=== PATIENT | female | born 1970 | race Caucasian/White ===

== ENCOUNTER → 2016-11-18 | Outpatient (CLI) | payer OTHER ==
--- NOTE | 2016-11-18 10:05 | REPMRS ---
Patient History The patient states she had a clinical breast exam in 2016.No known family history of cancer. Saline implants in both breasts, 2007. Took hormonal contraceptives for 28 years beginning at age 16. Digital Mammo Screening Bilat: November 18, 2016 - Exam #: [id number] Bilateral CC and MLO view(s) were taken. Technologist: Linda Barney, Technologist Prior study comparison: May 13, 2015, bilateral digital mammo screening bilat performed at [facility]. March 11, 2014, bilateral bilat screen digital mammo, performed at [facility] ([facility]). February 24, 2011, bilateral screening mammogram, performed at [facility] ([facility]). FINDINGS: There are scattered fibroglandular densities. The visualized retropectoral saline implant margins are smooth. Breast parenchymal density pattern is essentially symmetric. No dominant mass, clustered microcalcification, or archetectural distortion is evident on either side. No significant changes when compared with prior studies. ASSESSMENT: BI-RADS/ACR category 2 mammogram. Benign finding(s). Recommendation Routine screening mammogram of both breasts in 1 year (for women over age 40). Electronically Signed By: Donato Fabian MD 11/18/16 [id number]
== END ==
LOC: M RAD 07:18
PROVIDERS: ATTEND Physician Assistant
DX: Z12.31 Encounter for screening mammogram for malignant neoplasm of breast (principal)

== ENCOUNTER → 2018-02-07 | Outpatient (CLI) | payer OTHER | LOC: M RAD 13:30 | DX: Z12.31 Encounter for screening mammogram for malignant neoplasm of breast (principal) | CPT/HCPCS: 77067 ==

== ENCOUNTER → 2019-03-13 | Outpatient (CLI) | payer BC, OTHER ==
--- NOTE | 2019-03-13 09:30 | REPMRS ---
Patient History The patient states she had a clinical breast exam in February 2019. No known family history of cancer. Saline implants in both breasts, 2007. Took hormonal contraceptives for 28 years beginning at age 16. Digital Mammo Screening Bilat: March 13, 2019 - Exam #: [id number] Bilateral CC and MLO view(s) were taken. Technologist: Fabiana Nugent, Technologist Prior study comparison: February 07, 2018, bilateral digital mammo screening bilat performed at [facility]. November 18, 2016, bilateral digital mammo screening bilat performed at [facility]. May 13, 2015, bilateral digital mammo screening bilat performed at [facility]. March 11, 2014, bilateral bilat screen digital mammo, performed at [facility] ([facility]). FINDINGS: There are scattered fibroglandular densities. Bilateral screening digital mammogram with tomosynthesis: The patient states that there are no palpable abnormalities or other breast complaints. The patient's Ty[place] Lifetime Breast Carcinoma Risk is: 7.9% There are bilateral breast implants. Images are performed with and without implant displacement. There is no interval development of dominant mass, areas of architectural distortion, or clustered microcalcification typical of malignancy. There are no additional findings on tomosynthesis. This mammogram is interpreted with the aid of an FDA approved computer-aided detection system. Not all cancers are identified by mammography. Negative mammogram reports should not delay biopsy if a dominant or clinically suspicious mass is present. Adenosis and dense breasts may obscure an underlying neoplasm. No significant changes when compared with prior studies. Assessment: BI-RADS/ACR category 1 mammogram. Negative Mammogram. Recommendation Routine screening mammogram in 1 year (for women over age 40). This mammogram was interpreted with the aid of an FDA-approved computer-aided dectection system. A. Negative x-ray reports should not delay biopsy if a dominant or clinically suspicious mass is present. B. Not all cancers are identified by mammography. C. Adenosis and dense breast may obscure an underlying neoplasm. Electronically Signed By: Antonio Patel M.D. 03/13/19 0929
== END ==
LOC: M RAD 07:46
PROVIDERS: ATTEND Nurse Practitioner Family
DX: Z12.31 Encounter for screening mammogram for malignant neoplasm of breast (principal)

== ENCOUNTER → 2019-08-17 | Outpatient (CLI) | payer BC, OTHER ==
[2019-08-17 10:18] LABS: HEMATOCRIT 43.5 % (36.0-47.0); HEMOGLOBIN 14.3 g/dl (12.0-15.5); MEAN CORPUSCULAR HEMOGLOBIN 31.2 pg (27.0-33.0); MEAN CORPUSCULAR HGB CONC 32.9 g/dl (32.0-36.5); MEAN CORPUSCULAR VOLUME 94.8 fl (80.0-96.0); PLATELET COUNT, AUTOMATED 197 10^3/uL (150-450); RED BLOOD COUNT 4.59 10^6/uL (4.00-5.40); WHITE BLOOD COUNT 8.6 10^3/uL (4.0-10.0)
[2019-08-17 10:26] LABS: ALBUMIN 3.7 GM/DL (3.2-5.2); ALT/SGPT 28 U/L (12-78); BILIRUBIN,TOTAL 0.3 MG/DL (0.2-1.0); BLOOD UREA NITROGEN 10 MG/DL (7-18); CALCIUM LEVEL 9.3 MG/DL (8.5-10.1); CARBON DIOXIDE LEVEL 31 MEQ/L (21-32); CHLORIDE LEVEL 106 MEQ/L (98-107); CREATININE FOR GFR 0.64 MG/DL (0.55-1.30); GLOMERULAR FILTRATION RATE > 60.0 (>58); GLUCOSE, FASTING 85 MG/DL (70-100); POTASSIUM SERUM 4.2 MEQ/L (3.5-5.1); SODIUM LEVEL 140 MEQ/L (136-145); TOTAL PROTEIN 7.2 GM/DL (6.4-8.2)
[2019-08-17 10:50] LABS: RUBELLA IgG QUALITATIVE IMMUNE (IMMUNE)
[2019-08-17 10:51] LABS: HEPATITIS B SURFACE ANTIGEN NEGATIVE (NEGATIVE)
[2019-08-17 11:19] LABS: HEPATITIS C VIRUS ABY INDEX 0.1 INDEX (<0.8)
== END ==
LOC: M LAB 09:25
PROVIDERS: ATTEND Obstetrics & Gynecology Reproductive Endocrinology
DX: E28.9 Ovarian dysfunction, unspecified (principal)

== ENCOUNTER → 2019-09-20 | Outpatient (CLI) | payer BC, OTHER ==
[2019-09-20 09:13] LABS: THYROID STIMULATING HORMONE 1.07 uIU/ML (0.358-3.740)
[2019-09-20 12:43] LABS: ESTRADIOL 53.8 PG/ML; PROGESTERONE 27.27 NG/ML
== END ==
LOC: M LAB 07:39
PROVIDERS: ATTEND Obstetrics & Gynecology Reproductive Endocrinology
DX: E28.9 Ovarian dysfunction, unspecified (principal)

== ENCOUNTER → 2019-09-24 | Outpatient (CLI) | payer BC, OTHER ==
[2019-09-24 08:41] LABS: HCG, SERUM QUANTITATIVE < 1.0 MIU/ML
== END ==
LOC: M LAB 07:47
PROVIDERS: ATTEND Obstetrics & Gynecology Reproductive Endocrinology
DX: Z32.00 Encounter for pregnancy test, result unknown (principal)

== ENCOUNTER → 2019-10-27 | Outpatient (CLI) | payer BC, OTHER ==
[2019-10-29 13:02] LABS: ESTRADIOL 258.2 PG/ML; PROGESTERONE 38.67 NG/ML
== END ==
LOC: M LAB 09:08
PROVIDERS: ATTEND Obstetrics & Gynecology Reproductive Endocrinology
DX: E28.9 Ovarian dysfunction, unspecified (principal)

== ENCOUNTER → 2019-10-31 | Outpatient (CLI) | payer BC, OTHER ==
[2019-10-31 11:49] LABS: PROGESTERONE 46.88 NG/ML
== END ==
LOC: M LAB 07:43
PROVIDERS: ATTEND Obstetrics & Gynecology Reproductive Endocrinology
DX: E28.9 Ovarian dysfunction, unspecified (principal)

== ENCOUNTER → 2019-11-02 | Outpatient (CLI) | payer BC, OTHER ==
[2019-11-02 09:05] LABS: THYROID STIMULATING HORMONE 1.18 uIU/ML (0.358-3.740)
[2019-11-02 09:09] LABS: PROGESTERONE 51.54 NG/ML
[2019-11-02 09:10] LABS: ESTRADIOL 297.6 PG/ML
== END ==
LOC: M LAB 08:06
PROVIDERS: ATTEND Obstetrics & Gynecology Reproductive Endocrinology
DX: Z32.01 Encounter for pregnancy test, result positive (principal)

== ENCOUNTER → 2020-01-22 | Outpatient (REF) | payer OTHER ==
[2020-01-22 14:03] LABS: HEMATOCRIT 40.8 % (36.0-47.0); HEMOGLOBIN 13.6 g/dl (12.0-15.5); MEAN CORPUSCULAR HEMOGLOBIN 30.2 pg (27.0-33.0); MEAN CORPUSCULAR HGB CONC 33.3 g/dl (32.0-36.5); MEAN CORPUSCULAR VOLUME 90.5 fl (80.0-96.0); PLATELET COUNT, AUTOMATED 158 10^3/uL (150-450); RED BLOOD COUNT 4.51 10^6/uL (4.00-5.40); WHITE BLOOD COUNT 9.1 10^3/uL (4.0-10.0)
[2020-01-22 15:55] LABS: CHLAMYDIA DNA AMPLIFICATION NEGATIVE (NEGATIVE); GC DNA AMPLIFICATION NEGATIVE (NEGATIVE)
[2020-01-23 11:02] LABS: HEPATITIS B SURFACE ANTIGEN NEGATIVE (NEGATIVE); HEPATITIS C VIRUS ABY INDEX 0.1 INDEX (<0.8); HIV 1&2 SCREEN CENTAUR NEGATIVE (NEGATIVE)
== END ==
LOC: M PLALAB 09:22
PROVIDERS: ATTEND Specialist
DX: O09.521 Supervision of elderly multigravida, first trimester (principal)

== ENCOUNTER → 2020-02-29 | Outpatient (CLI) | payer BC ==
--- NOTE | 2020-02-29 14:51 | REP ---
REASON: anatomy. Multiple ultrasonographic images of the gravid uterus show a single living intrauterine gestation in the transverse, head to the maternal right position. Doppler interrogation of the heart shows a heart rate of 152 beats per minute. The placenta is posterior and not low lying. The subjective amniotic fluid volume is within normal limits. The cervix measures 3.4 cm in length and is closed. Evaluation of the maternal adnexal spaces showed no abnormalities. BPD 5.2 cm = 21 weeks 5 days HC 19.0 cm = 21 weeks 2 days AC 16.1 cm = 21 weeks 1 day FL 3.6 cm = 21 weeks 2 days The estimated weight is 407 grams which is at the 43rd percentile for a 24-uzds-5-day gestational age. The anatomical structures seen as unremarkable are as follows: Thalami, cavum septum pellucidum, cerebellum, cisterna magna, cerebral ventricles, upper lip, stomach, cord insertion, three-vessel umbilical cord, kidneys, urinary bladder, spine, and upper and lower extremities. Four-chamber heart and ventricular outflow tracts were suboptimally visualized. IMPRESSION: Single living intrauterine gestation as described above with an estimated gestational age of 21 weeks 0 days via composite criteria and an estimated date of delivery of 07/11/2020. No anomalies were detected, however, I recommend a followup examination to better visualized those anatomical structures not well seen today as described above.
== END ==
LOC: M WHC 09:22
PROVIDERS: ATTEND Specialist
DX: Z34.82 Encounter for supervision of other normal pregnancy, second trimester (principal); Z36.89 Encounter for other specified antenatal screening; Z3A.21 21 weeks gestation of pregnancy

== ENCOUNTER → 2020-04-01 | Outpatient (CLI) | payer BC ==
[~2020-04-01] MED LIST: IBUP80TA PO; PERCOCET PO
--- NOTE | 2020-04-01 11:37 | REP ---
REASON: Followup anatomy. The prior examination of 02/29/2020 failed to optimally visualize a four-chamber heart and ventricular outflow tract. Multiple ultrasonographic images of the gravid uterus show a single living intrauterine gestation in the cephalic presentation. Doppler interrogation of the heart shows a heart rate of 140 beats per minute. The placenta is posterior and not low lying. The subjective amniotic fluid volume is within normal limits. The cervix measures 4.3 cm in length and it is closed. BPD 6.4 cm = 25 weeks 6 days HC 23.3 cm = 25 weeks 2 days AC 21.1 cm = 25 weeks 5 days FL 4.8 cm = 25 weeks 6 days The estimated weight is 846 grams which is at the 39th percentile for a 65-gtzf-8-day gestational age. Four-chamber heart and ventricular outflow tracts were seen to be within normal limits today. IMPRESSION: Single living intrauterine gestation as described above with an estimated gestational age of 25 weeks 2 days via composite criteria and an estimated date of delivery of 07/13/2020 by today's exam. No anomalies were detected as described above.
== END ==
LOC: M WHC 08:19
PROVIDERS: ATTEND Advanced Practice Midwife
DX: O09.522 Supervision of elderly multigravida, second trimester (principal); Z3A.25 25 weeks gestation of pregnancy

== ENCOUNTER → 2020-05-14 | Outpatient (CLI) | payer BC ==
--- NOTE | 2020-05-21 12:35 | REP ---
LIMITED OBSTETRICAL ULTRASOUND CLINICAL: Growth evaluation. COMPARISON: 04/01/2020. TECHNIQUE: Transabdominal obstetrical ultrasound with color Doppler evaluation. FINDINGS: Single live intrauterine in cephalic presentation. Placenta noted posteriorly and grade 1 without placenta previa or abruption. Amniotic fluid volume is normal. NATHANIEL equals 10.1 cm. Cervix measures 3.3 cm in length and appears closed. MEASUREMENTS BPD 80 mm 32 weeks 1 day HC 287 mm 31 weeks 5 days AC 280 mm 32 weeks 1 day FL 60 mm 31 weeks 1 day HL 55 mm 32 weeks 0 days heart rate equals 138 beats per minute. Gestational age by current measures 31 weeks 6 days with estimated date of delivery 07/10/2020. Estimated weight 1815 (29th percentile). IMPRESSION: Single live advanced gestation in cephalic presentation demonstrating appropriate interval growth and estimated weight. Amniotic fluid volume normal. MTDD
== END ==
LOC: M WHC 09:35
PROVIDERS: ATTEND Advanced Practice Midwife
DX: Z36.89 Encounter for other specified antenatal screening (principal); Z3A.31 31 weeks gestation of pregnancy

== ENCOUNTER → 2020-06-04 | Outpatient (CLI) | payer BC ==
--- NOTE | 2020-06-17 14:21 | REP ---
LIMITED OBSTETRICAL ULTRASOUND COMPARISON: 06/14/2020 TECHNIQUE: Transabdominal obstetrical ultrasound with color Doppler evaluation. CLINICAL: Growth evaluation. FINDINGS: Ultrasound examination demonstrates a single live advanced gestation in cephalic presentation. Motion was identified by technologist. Placenta noted posteriorly and grade 3 without evidence for placenta previa or abruption. Cervix measures 4.2 cm in length and appears closed. Gestational age by last menstrual period (LMP) 35 weeks 0 days with estimated date of delivery 07/09/2020. Gestational age by current measurements 34 weeks 3 days with estimated date of delivery 07/13/2020. heart rate 140 beats per minute. Amniotic fluid index (NATHANIEL) 13.1 cm. Estimated weight 2373 grams (25th percentile). IMPRESSION: Single live advanced gestation in cephalic presentation demonstrating appropriate estimated weight and growth. MTDD
== END ==
LOC: M WHC 10:16
PROVIDERS: ATTEND Advanced Practice Midwife
DX: O09.523 Supervision of elderly multigravida, third trimester (principal); Z3A.34 34 weeks gestation of pregnancy

== ENCOUNTER → 2020-06-25 | Outpatient (CLI) | payer BC ==
--- NOTE | 2020-06-30 14:12 | REP ---
OBSTETRIC SONOGRAPHY HISTORY: growth study, amniotic fluid index (NATHANIEL). Third trimester. Advanced maternal age. FINDINGS: Scanning through the gravid uterus demonstrates a viable single intrauterine gestation in a cephalic lie. A posterofundal grade 3 placenta is seen without evidence of previa. motion was observed and heart rate was recorded at 130 beats per minute. Amniotic fluid is subjectively decreased. NATHANIEL is at the lower range of normal 7.5 cm (7.3 to 23.9 cm). Three-vessel cord is seen. Closed cervical length is measured transabdominally at 3.6 cm. BIOMETRY CHART: BPD 9.2 cm 37 weeks 3 days Head circumference 33.1 cm 37 weeks 5 days Abdominal circumference 33.2 cm 37 weeks 1 day Femur length 7.4 cm 38 weeks 0 days Humeral length 6.4 cm 37 weeks 2 days AC/HC ratio 1.00 Normal Cephalic index 0.78 Normal Estimated weight 3204 grams, 7 pounds 1 ounce, 47th percentile for 38 weeks 0 days. IMPRESSION: Viable single intrauterine gestation at 37 weeks 3 days by todays composite criteria. Expected gestational age estimate based on prior sonography is 38 weeks days. Estimated date of delivery (SABRINA) by prior sonography 07/09/2020. Estimated weight 47th percentile. Amniotic fluid subjectively somewhat low. MTDD
== END ==
LOC: M WHC 09:25
PROVIDERS: ATTEND Advanced Practice Midwife
DX: O09.523 Supervision of elderly multigravida, third trimester (principal)

== ENCOUNTER 2020-07-02 07:45 | Inpatient (IN) | payer BC, OTHER ==
[~2020-07-02] VITALS: Ht 167.6 cm; Wt 84.6 kg
[2020-07-02] VITALS (29 sets, daily range): BP systolic 102–159; BP diastolic 57–93
[2020-07-02] MEDS ORDERED: PENICILLIN G POTASSIUM IV 5 MU in D5W MINI-BAG PLUS 100 ML IV STA ×2 (08:43→18:52)
--- NOTE | 2020-07-02 09:30 | HPEPDOC ---
Obstetrical History & Physical General Date of Admission Jul 02, 2020 at 07:45 History of Present Illness Patient presents for IOL due to AMA at 39 0/7 weeks with an EDC of 07/09/2020 co nfirmed by 1st trimester US. Denies contractions, LOF, or vaginal bleeding. Fetus is active. Information Provided By: Patient Age: 50 : 5 Term: 2 Pre-term: 0 Abortions: 2 Livin Care Care: Good Care Dating Final EDC: Jul 09, 2020 Final EDC by: 1st trimester (US) Antepartum Course Diagnos(e)s AMA Past Medical History Past Obstetrical History : Past Obstetrical History: Multigravida (. 08/1990 41.4 male 7lbs 1oz 2. 02/1998 male 7lbs 7 oz 3. 2015 miscarriage 4. 2017 miscarriage) [employer]IST History: No pertinent history Past Medical History Medical History Non-contributory Surgical History: Abdominoplasty Family History Significant Family History: Other (thyroid disease, aortic aneurysm) Social History Marital Status: Family situation: Spouse/partner home Psychosocial History: No pertinent psych hx * Smoker: non-smoker Alcohol: Denies Drugs: denies Physical Examination Physical Examination GENERAL: Alert and oriented times three. ABDOMEN: Gravid and non-tender to touch. EXTREMITIES: No edema. Vital Signs/I&O T 98.7 P 108 RR 16 BP 124/81 Laboratory Data Urine Culture: No Growth Pertinent Laboratoy Data Blood Type: O+ RBC Antibody Screen: Negative HIV: Negative Hepatitis B: Negative Hepatitis C: Negative Rapid Plasma Reagin: Nonreactive Rubella: Immune Varicella: Immune Chlamydia/Gonorrhea: Negative Group B Streptococcus: Positive Glucose Tolerance Test: 107 Steroid Therapy Steroid Therapy: No Vaginal Examination Dilation: Fingertip Effacement: other (long) Station: -3 Cervical Consistency: Medium Cervical Position: Posterior Presentation: Cephalic presentation Position: Vertex (occiput) (EFW 6.5-7 LBS) Assessment Heart Rate (FHR): 135 Variability: Moderate Accelerations: Positive Decelerations: None Tocometer Contractions: Yes Frequency: irregular Strength: palpated as mild Assessment/Plan Assessment IUP @ 39 0/7 weeks, FHR Category I, AMA Plan Admit and orient. Risks, benefits, alternatives to IOL reviewed. All questions answered. Pt desires IOL. Regular diet. OOB ad hanh. Saline lock and routine labs. Cytotec for cervical ripening. Group B Streptococcus (GBS) positive, plan Penicillin when in active labor. Verbally consented for emergency surgery and blood products PRN. Anticipate ripening and labor. KARUNA ALMANZA CNM Jul 02, 2020 09:30
[2020-07-02] MEDS: miSOPROStol 50 MCG 1/2 TAB (S0191) PO SCH ×2 (09:37→13:37)
[2020-07-02 10:00] LABS: HEMATOCRIT 39.2 % (36.0-47.0); HEMOGLOBIN 12.6 g/dl (12.0-15.5); MEAN CORPUSCULAR HGB CONC 32.1 g/dl (32.0-36.5); MEAN CORPUSCULAR VOLUME 90.3 fl (80.0-96.0); PLATELET COUNT, AUTOMATED 130 10^3/uL (150-450); RED BLOOD COUNT 4.34 10^6/uL (4.00-5.40); WHITE BLOOD COUNT 6.7 10^3/uL (4.0-10.0)
[2020-07-02] MEDS ORDERED: PENICILLIN G POTASSIUM IV 2.5 MU in IV 1 EA IV SCH (12:45)
[2020-07-02] MEDS ORDERED: LR 1,000 ML IV SCH (18:14)
[2020-07-02] MEDS ORDERED: OXYTOCIN DRIP 30 UNITS in IV 1 EA IV SCH (18:15)
--- NOTE | 2020-07-02 18:20 | IPNPDOC ---
Obstetrical Progress Note Date of Service Jul 02, 2020 Subjective Pt reporting intermittent contractions that are uncomfortable. Objective BP 115/73 P 76 Assessment Heart Rate (FHR): 125 Variability: Moderate Accelerations: Positive Decelerations: None Heart Rate Tracing: Category I Tocometer Contractions: Yes Frequency: other (every 2-4 min) Sterile Vaginal Examination Dilation: 2cm Effacement (%): 50% Station: -2 Cervical Consistency: Medium Cervical Position: Anterior (Cook's catheter inserted, internal balloon inflated to 60cc external balloon inflated to 40cc) Postion/Presentation: Cephalic presentation Assessment and Plan Group B Streptococcus: Positive Anticipate: Vaginal Delivery Additional Comments A: IUP at 39 0/7 weeks, FHR Category I, AMA, GBS positive P: Start pitocin, titrate to 6mU/min until cook's catheter falls out, then increase per protocol. Start penicillin for GBS prophylaxis. Consult anesthesia for labor epidural PRN. Anticipate . KARUNA ALMANZA CNM Jul 02, 2020 18:20
[2020-07-02] MEDS ORDERED: FENTANYL 2MCG/ML ROPIVACAINE 0.2% IN 0.9% NACL 100ML IVBAG As Ordered ONE (19:28)
[2020-07-02] MEDS ORDERED: diphenhydrAMINE 50MG/ML VIAL (J1200) IV PRN (20:35)
[2020-07-02] MEDS ORDERED: FENTANYL/ROPIVACAINE/NACL BAG 100 ML EPIDURAL SCH (20:35)
[2020-07-02] MEDS ORDERED: EPIDURAL COMMENT XX SCH (20:35)
[2020-07-02] MEDS ORDERED: LACTATED RINGER'S 1000 ML IV PRN (20:35)
[2020-07-02] MEDS ORDERED: NALOXONE INJ 0.4MG/1ML VIAL (J2310 PER 1MG) IV PRN (20:35)
[2020-07-02] MEDS ORDERED: ONDANSETRON 4MG/2ML VIAL IV PRN (20:35)
[2020-07-02] MEDS ORDERED: EPIDURAL/PCA KEYS XX PRN (20:35)
[2020-07-02] MEDS ORDERED: REFRIGERATOR IV KEYS XX PRN (20:35)
[2020-07-02] MEDS ORDERED: ePHEDrine SULFATE 25 MG/5 ML(5MG/ML) SYRINGE As Ordered ONE (21:49)
[2020-07-02] MEDS: ePHEDrine SULFATE 25 MG/5 ML(5MG/ML) SYRINGE IV PRN ×2 (21:51→21:57)
[2020-07-02] MEDS: PENICILLIN G POTASSIUM IV 2.5 MU in IV 1 EA IV SCH (23:10)
[2020-07-03] VITALS (27 sets, daily range): BP systolic 101–152; BP diastolic 58–86
[2020-07-03] MEDS: ePHEDrine SULFATE 25 MG/5 ML(5MG/ML) SYRINGE IV PRN (00:03)
[2020-07-03] MEDS: PENICILLIN G POTASSIUM IV 2.5 MU in IV 1 EA IV SCH (03:27)
--- NOTE | 2020-07-03 04:04 | IPNPDOC ---
Text Note Date of Service The patient was seen on 07/03/20. NOTE S: Pt comfortable with epidural. O: BP 120/61 T 97.8F FHR 145 moderate variability, occasional variable decelerations occasional late decelerations. Contractions every 1-3 minutes. Cooks catheter out at 2210. SROM with SVE for moderate clear fluid. SVE 6/50/-2, soft, anterior. IUPC inserted. A: IUP at 39 0/7 weeks, FHR category II P: Repositioned. Continue to observe. KARUNA ALMANZA CNM Jul 03, 2020 04:04
[2020-07-03] MEDS ORDERED: LACTATED RINGER'S 1000 ML IV STA (05:55)
[2020-07-03] MEDS ORDERED: AZITHROMYCIN INJ 500 MG, VIAL MATE ADAPTER 1 EACH in D5W 250 ML IV ONE (06:00)
[2020-07-03] MEDS ORDERED: BICITRA 30ML SOLN UDC PO ONE (06:00)
[2020-07-03] MEDS ORDERED: ceFAZolin SOD 2 GM in IV 1 EA IV ONE (06:00)
[2020-07-03] MEDS ORDERED: BICITRA 30ML SOLN UDC As Ordered ONE (06:07)
[2020-07-03] MEDS ORDERED: LIDOCAINE 2% W/EPINEPHRINE 20ML VIAL **PRES FREE As Ordered ONE (06:10)
[2020-07-03] MEDS ORDERED: OXYTOCIN 30 UNITS IN 0.9% NaCl 500ML IV BAG (J2590) As Ordered ONE ×2 (06:10→08:11)
--- NOTE | 2020-07-03 06:17 | IPNPDOC ---
Obstetrical Progress Note Date of Service Jul 03, 2020 Subjective Pt reporting increased pain with contractions. Objective Vital Signs Date Time Temp Pulse Resp B/P (MAP) Pulse Ox O2 Delivery O2 Flow Rate FiO2 07/03/20 05:03 67 18 120/77 (91) 07/03/20 04:02 98.0 97 07/02/20 21:00 Room Air Assessment Heart Rate (FHR): 145 Variability: Moderate Accelerations: Positive Decelerations: Late, Variable Heart Rate Tracing: Category II Tocometer Contractions: Yes Frequency: regular Strength: other (MVU's adequate) Sterile Vaginal Examination Dilation: 6 cm Cervical Position: Anterior Postion/Presentation: Cephalic presentation Assessment and Plan Additional Comments A: IUP at 39 1/7 weeks, FHR Category II, arrest of dilation P: Pitocin off. Risks, benefits, and alternatives to delivery reviewed. All questions answered. Dr. Kelley aware of patient status and en route. KARUNA ALMANZA CNM Jul 03, 2020 06:17
[2020-07-03] MEDS ORDERED: ONDANSETRON 4MG/2ML VIAL As Ordered ONE (06:34)
[2020-07-03] MEDS ORDERED: PHENYLephrine HCL 500 MCG/5 ML (100MCG/ML) SYRINGE (J2370) As Ordered ONE (06:37)
[2020-07-03] MEDS ORDERED: MORPHINE PRES-FREE INJ 10 MG/10 ML VIAL (J2274) As Ordered ONE (06:57)
[2020-07-03] MEDS ORDERED: KETOROLAC 60MG 2ML VIAL As Ordered ONE (06:57)
[2020-07-03 07:03] LABS: CORD GAS ABE A -10.6; CORD GAS HCO3 A 20.2 MEQ/L; CORD GAS O2 SAT A 22.7 %; CORD GAS PH A 7.103 UNITS; CORD GAS PO2 A 16.7 mmHg; CORD GAS SBC A 14.7 MEQ/L; CORD GAS TCO2 A 22.2 MEQ/L
[2020-07-03 07:05] LABS: CORD GAS ABE V -9.9; CORD GAS HCO3 V 20.9 MEQ/L; CORD GAS O2 SAT V 25.7 %; CORD GAS PCO2 V 67.3 mmHg; CORD GAS PH V 7.11 UNITS; CORD GAS PO2 V 17.4 mmHg; CORD GAS SBC V 15.2 MEQ/L
[2020-07-03] MEDS ORDERED: NALBUPHINE HCL 10 MG/ML AMP (J2300) IV PRN (07:08)
[2020-07-03] MEDS ORDERED: METOCLOPRAMIDE INJ 10MG/2ML VIAL (J2765 PER 1) IV PRN ×2 (07:08→08:00)
[2020-07-03] MEDS ORDERED: NALOXONE INJ 0.4MG/1ML VIAL (J2310 PER 1MG) IV PRN ×2 (07:08)
[2020-07-03] MEDS ORDERED: diphenhydrAMINE 50MG/ML VIAL (J1200) IV PRN (07:08)
[2020-07-03] MEDS ORDERED: ONDANSETRON 4MG/2ML VIAL IV PRN ×3 (07:08→08:00)
[2020-07-03] MEDS ORDERED: OXYTOCIN INJ 10 UNITS/ML VIAL (J2590) As Ordered ONE (07:13)
[2020-07-03] MEDS ORDERED: OXYTOCIN DRIP 30 UNITS in IV 1 EA IV SCH (07:29)
[2020-07-03] MEDS ORDERED: DOCUSATE SODIUM 100 MG CAP PO PRN (07:30)
[2020-07-03] MEDS ORDERED: PERCOCET 5MG/325MG TAB PO PRN ×2 (07:30→08:00)
[2020-07-03] MEDS ORDERED: MEASLES,MUMPS,RUBELLA VACCINE INJ (MMR-II) (90707) SC SCH (07:30)
[2020-07-03] MEDS ORDERED: RHOGAM 300 MCG (1500 IU) INJ (J2790) IM SCH (07:30)
--- NOTE | 2020-07-03 07:39 | ROOPDOC ---
[facility] Report Of Operation Report of Operation DATE OF PROCEDURE: 06/25/20 PREPROCEDURE DIAGNOSES: 39 weeks, advanced maternal age, arrest of dilation POSTPROCEDURE DIAGNOSES: same. PROCEDURE: primary low transverse section. SURGEON: Trish Pulido MD CLEAN ROOM OPERATOR: Mary Hector CNM ANESTHESIA: epidural. ESTIMATED BLOOD LOSS: Approximately 500 mL. Findings: 6 lb 6 oz female, Apgars 9, 9. Normal uterus, tubes ovaries. COMPLICATIONS: none. Summary: The patient was taken to the OR where spinal anesthesia was induced. A Ayala Catheter was in place. A Pfannenstiel skin incision was created with a scalpel. The fascia was nicked and extended. The peritoneal cavity was entered. A Mobius retractor was placed. A curvilinear incision was made in the lower uterine segment. Membranes were ruptured with clear fluid. The infant was delive red from the vertex position without difficulty. The cord was doubly clamped and cut. The infant was handed to the awaiting nurses. The uterus was closed with O- Vicryl in a running locked fashion. A second imbricating layer was placed. . The peritoneum was closed with 2-O Vicryl in a running fashion. The fascia was closed with O-Vicryl in a running fashion. The deep layer was irrigated. The skin was closed with 4-O Monocryl in a running fashion. Sponge, needle, instrument counts correct. Mary Hector CNM, assisted throughout the procedure. She helped create all layers of the incision. She was indispensable to the procedure. TRISH PULIDO MD Jul 03, 2020 07:39
[2020-07-03] MEDS ORDERED: LR 1,000 ML IV SCH (08:00)
[2020-07-03] MEDS ORDERED: fentaNYL 100 MCG/2 ML INJECTION (J3010) IV PRN (08:00)
[2020-07-03] MEDS: PRENATAL VITAMINS CHEWABLE TABLET PO SCH (09:00)
[2020-07-03] MEDS: KETOROLAC 30 MG/ML 1ML VIAL IV SCH ×2 (13:01→18:37)
[2020-07-03] MEDS: LR 1,000 ML IV SCH ×2 (13:32→15:29)
[2020-07-03] MEDS ORDERED: LACTATED RINGER'S 1000 ML IV ONE (16:00)
[2020-07-04] MEDS: KETOROLAC 30 MG/ML 1ML VIAL IV SCH (00:37)
[2020-07-04 02:00] VITALS: BP 99/53
[2020-07-04 06:00] VITALS: BP 109/62
--- NOTE | 2020-07-04 06:54 | IPNPDOC ---
Progress Note Date of Service: Jul 04, 2020 Progress Note SUBJECT: She has been ambulating, voiding spontaneously without issue and tolerating regular diet. Breast feeding without issue. Patient is ambulating well. [Reports some cramping with . Voiding without difficulty. OBJECTIVE: VITAL SIGNS: Within normal limits, afebrile. Alert and oriented times three. Breath sounds clear to auscultation. Heart rate: Regular rate and rhythm, no murmurs, rubs or gallops. Abdomen: Fundus firm at U-2. Soft, NTTP. dressing C/D/I [Minimal] lochia. ASSESSMENT: Pt is a 50-year-old POD#1 s/p PLAN: Pain management Ambulate Anticipate discharge tomorrow [facility] Signs/I&O Vital Signs Date Time Temp Pulse Resp B/P (MAP) Pulse Ox O2 Delivery O2 Flow Rate FiO2 07/04/20 02:00 98.0 69 16 99/53 (68) 94 Room Air I&O- Last 24 Hours up to 6 AM 07/04/20 06:00 Intake Total 2403 ml Output Total 1820 ml Balance 583 ml Laboratory Data 24H LABS Laboratory Tests 2 07/03/20 07:00: Cord Arterial Blood pH 7.103, Cord Arterial Blood PCO2 66.0, Cord Arterial Blood PO2 16.7, Cord Arterial Blood HCO3 20.2, Cord Arterial Blood Total CO2 22.2, Cord Arterial Blood Base Excess -10.6, Cord Arterial Base Excess (Standard 14.7, Cord Arterial Bld Oxygen Saturation 22.7, Cord Venous Blood pH 7.110, Cord Venous Blood PCO2 67.3, Cord Venous Blood PO2 17.4, Cord Venous Blood HCO3 20.9, Cord Venous Blood Total CO2 23.0, Cord Venous Base Excess (Actual) -9.9, Cord Venous Base Excess (Standard) 15.2, Cord Venous Blood Oxygen Saturation 25.7 07/03/20 08:09: Serology Scanned Report Hepatitis B Testing TRISH PULIDO MD Jul 04, 2020 06:54
[2020-07-04 09:11] LABS: HEMATOCRIT 30.5 % (36.0-47.0); MEAN CORPUSCULAR HEMOGLOBIN 29.3 pg (27.0-33.0); MEAN CORPUSCULAR HGB CONC 31.8 g/dl (32.0-36.5); MEAN CORPUSCULAR VOLUME 92.1 fl (80.0-96.0); PLATELET COUNT, AUTOMATED 107 10^3/uL (150-450); RED BLOOD COUNT 3.31 10^6/uL (4.00-5.40)
[2020-07-04 09:12] LABS: HEMOGLOBIN 9.7 g/dl (12.0-15.5)
[2020-07-04] MEDS: PRENATAL VITAMINS CHEWABLE TABLET PO SCH (09:28)
[2020-07-04] MEDS: IBUPROFEN 800 MG TAB PO SCH ×2 (09:29→17:07)
[2020-07-04] MEDS ORDERED: SLF 3 ML SYR IV PRN (09:30)
[2020-07-04 09:54] VITALS: BP 98/60
[2020-07-04] MEDS ORDERED: SLF 3 ML SYR IV SCH (14:00)
[2020-07-04 14:45] VITALS: BP 112/69
[2020-07-04 18:12] VITALS: BP 109/64
[2020-07-04] MEDS: PERCOCET 5MG/325MG TAB PO PRN (19:19)
[2020-07-05] MEDS: IBUPROFEN 800 MG TAB PO SCH ×3 (00:41→16:55)
[2020-07-05] MEDS: PERCOCET 5MG/325MG TAB PO PRN ×3 (05:16→20:09)
[2020-07-05 06:25] VITALS: BP 113/72
--- NOTE | 2020-07-05 08:03 | DS.PDOC ---
Discharge Summary General Date of Admission Jul 02, 2020 at 07:45 Date of Discharge 07/05/2020 Discharge Summary PROCEDURES PERFORMED DURING STAY: Primary C/Section. ADMITTING DIAGNOSES: 1. Induction of Labor for AMA at 39.0weeks. DISCHARGE DIAGNOSES: 1. Primary C/Section PO Day 2. COMPLICATIONS/CHIEF COMPLAINT: Induction of Labor for AMA at 39.0wks. HISTORY OF PRESENT ILLNESS: 50 y/o G5 now [id number] admitted for IOL for AMA at 39.0weeks. Arrest of descent resulted in a Primary C/Section. Currently post-op Day 2 and desires discharge home. HOSPITAL COURSE: Adequate pain management with Motrin and Percocet. Voiding well. Tolerating regular diet. Passing flatus without difficulty. Fundus firm, midline, at umbilicus. Dressing dry and intact, no new drainage noted. DISCHARGE MEDICATIONS: Please see below. ALLERGIES: Please see below. PHYSICAL EXAMINATION ON DISCHARGE: VITAL SIGNS: Please see below. GENERAL: Alert and oriented x3. HEENT: No abnormalities noted. NECK: Supple, no JVD. CARDIOVASCULAR EXAMINATION: Heart rate and rhythm regular. No edema. RESPIRATORY EXAMINATION: CTA bilaterally. Respirations regular, no accessory muscle use. ABDOMINAL EXAMINATION: Normoactive x4 quadrants. Soft, non-tender, no distention. Fundus firm, nontender. EXTREMITIES: No edema noted. SKIN: [place], intact. Dressing over abdominal incision has old drainage, otherwise dry and intact. NEUROLOGICAL EXAMINATION: Grossly intact. PSYCHIATRIC EXAMINATION: Moods stable, content with . LABORATORY DATA: Please see below. PROGNOSIS: Good. ACTIVITY: As tolerated. DIET: Regular DISCHARGE PLAN: Discharge home today. DISPOSITION: . DISCHARGE INSTRUCTIONS: 1. Call for fever, chills, foul smelling lochia, symptoms of depression, red streaking on breasts, pain that is no improving. 2. Call for signs of abdominal incision infection including redness at the incision, swelling, foul smelling drainage from incision, pain that is not improving at the incision. 3. Maintain abdominal dressing until day 5 then remove on day 5. 4. Take Motrin and Percocet every 4-6 hours by mouth as needed for pain. 5. Return to office in 2 weeks for incision check, then at 6 weeks for overall health. DISCHARGE CONDITION: Stable. TIME SPENT ON DISCHARGE: Greater than 10 minutes. Vital Signs/I&Os Vital Signs Date Time Temp Pulse Resp B/P (MAP) Pulse Ox O2 Delivery O2 Flow Rate FiO2 07/05/20 06:25 99.0 73 19 113/72 (86) 97 07/04/20 18:12 Room Air Laboratory Data Labs 24H Laboratory Tests 2 07/04/20 08:10: Nucleated Red Blood Cells % (auto) 0.0 CBC/BMP Laboratory Tests 07/04/20 08:10 Allergies Coded Allergies: No Known Allergies (Unverified , 07/02/20) Brandy Greene CNM Jul 05, 2020 08:03
[2020-07-05] MEDS ORDERED: PERCOCET PO (08:07)
[2020-07-05] MEDS ORDERED: IBUP80TA PO (08:07)
[2020-07-05] MEDS: PRENATAL VITAMINS CHEWABLE TABLET PO SCH (08:44)
[2020-07-05 18:00] VITALS: BP 143/80
[2020-07-05] MEDS ORDERED: MOM 30ML SUSPENSION UDC PO PRN (20:15)
[2020-07-06] MEDS: IBUPROFEN 800 MG TAB PO SCH ×2 (00:01→08:46)
[2020-07-06 05:52] VITALS: BP 128/83
[2020-07-06] MEDS: PRENATAL VITAMINS CHEWABLE TABLET PO SCH (08:46)
--- NOTE | 2020-07-06 14:20 | IPNPDOC ---
Progress Note Date of Service: Jul 06, 2020 Day#: 3 Progress Note POD 3 SUBJECT: Laure is a 50yo F s/p uncomplicated PLTCS for arrest of labor, doing well /post-op day # 3. She has been ambulating, voiding spontaneously without issue and tolerating regular diet. Breast feeding without issue. Reports lochia is like a scant period. Pain well controlled with motrin/percocet. OBJECTIVE: VITAL SIGNS: Within normal limits, afebrile. Alert and oriented times three. Abdomen: Fundus firm at U-2. Soft, appropriately tender to palpation with guarding/rebound. Pfannensteil incision covered by clean/dry optifoam dressing Extremities: no pain with palpation of calves Labs: pre-op H/H: 12.6/39.2 post-op H/H: 9.7/30.5 ASSESSMENT: Laure is a 50yo F s/p uncomplicated PLTCS for arrest of labor, doing well /post-op day # 3. Vitals within normal limits, afebrile, hemodynamically stable with no evidence of infection. PLAN: 1. Discharge to home today. 2. Percocet and Motrin for pain. 3. Encourage breast feeding and ambulation. 4. Undecided on contraception 5. Incision check with Dr. Kelley in 2 weeks in clinic. 6. Discussed return precautions at length: heavy bleeding, increasing abdominal pain, evidence of wound infection such as drainage/pus/redness, foul smelling di scharge, breast redness/pain, fevers/chills, depression Riddhi Rocha MD VS, I&O, 24H, Fishbone Vital Signs/I&O Vital Signs Date Time Temp Pulse Resp B/P (MAP) Pulse Ox O2 Delivery O2 Flow Rate FiO2 07/06/20 05:52 98.3 73 18 128/83 (98) 96 07/05/20 20:09 Room Air Riddhi Rocha MD Jul 06, 2020 14:20
== END 2020-07-06 13:35 | disposition home or self-care (01) | DRG 540 ==
LOC: M LDI 07:45 → M OBS 07-03 10:18
PROVIDERS: ADMIT Advanced Practice Midwife; ATTEND Specialist
PROC: 3E0P7GC Introduction of Other Therapeutic Substance into Female Reproductive, Via Natural or Artificial Opening (ICD-10-PCS; 2020-07-02)
PROC: 10D00Z1 Extraction of Products of Conception, Low, Open Approach (ICD-10-PCS; principal; 2020-07-03 07:23)
DX: O99.824 Streptococcus B carrier state complicating childbirth (principal); Z3A.39 39 weeks gestation of pregnancy; O76 Abnormality in fetal heart rate and rhythm complicating labor and delivery; O62.0 Primary inadequate contractions; Z37.0 Single live birth

== ENCOUNTER → 2020-08-18 | Outpatient (CLI) | payer BC ==
--- NOTE | 2020-08-18 15:20 | REPMRS ---
Patient History The patient states she has not had a clinical breast exam in over a year. No known family history of cancer. Saline implants in both breasts, 2007. Took hormonal contraceptives for 28 years beginning at age 16. Digital Woman Screen Mammo: August 18, 2020 - Exam #: [id number] Bilateral CC and MLO view(s) were taken. Technologist: Renay Jean, Technologist Prior study comparison: March 13, 2019, bilateral digital mammo screening bilat, performed at [facility]. February 07, 2018, bilateral digital mammo screening bilat, performed at [facility]. March 11, 2014, bilateral bilat screen digital mammo, performed at [facility] ([facility]). FINDINGS: The breast tissue is heterogeneously dense. This may lower the sensitivity of mammography. The visualized implant margins are smooth. Breast parenchymal density pattern is essentially symmetric. No dominant mass, grouped microcalcification, or architectural distortion is evident on either side. 3-D tomosynthesis shows no additional findings. The Volpara volumetric breast density pattern is C. No significant changes when compared with prior studies. Assessment: BI-RADS/ACR category 2 mammogram. Benign Findings. Recommendation Routine screening mammogram of both breasts in 1 year (for women over age 40). This patient's Lifetime Breast Cancer RIsk is estimated at 7.6 %. This mammogram was interpreted with the aid of an FDA-approved computer-aided dectection system. Electronically Signed By: Donato Fabian MD 08/18/20 3505
== END ==
LOC: M WHC 13:30
PROVIDERS: ATTEND Internal Medicine
DX: Z12.31 Encounter for screening mammogram for malignant neoplasm of breast (principal); Z98.82 Breast implant status

== ENCOUNTER → 2021-12-15 | Outpatient (CLI) | payer BC | LOC: M WHC 08:35 | PROVIDERS: ATTEND Internal Medicine | DX: Z12.31 Encounter for screening mammogram for malignant neoplasm of breast (principal); Z92.0 Personal history of contraception; Z98.82 Breast implant status ==

== ENCOUNTER → 2022-11-14 | Outpatient (REF) | payer OTHER ==
[2022-11-14 18:28] LABS: APPEARANCE, URINE CLOUDY (CLEAR); BACTERIA, URINE AUTO NEGATIVE (NEGATIVE); BILIRUBIN, URINE AUTO NEGATIVE (NEGATIVE); BLOOD, URINE BLOOD NEGATIVE (NEGATIVE); COLOR, URINE YELLOW (YELLOW); GLUCOSE, URINE (UA) AUTO NEGATIVE (NEGATIVE); KETONE, URINE AUTO TRACE mg/dL (NEGATIVE); LEUKOCYTE ESTERASE, URINE AUTO NEGATIVE (NEGATIVE); MUCUS, URINE LARGE (NEGATIVE); NITRITE, URINE AUTO NEGATIVE (NEGATIVE); PROTEIN, URINE AUTO NEGATIVE (NEGATIVE); RBC, URINE AUTO 0 /HPF (0-3); SPECIFIC GRAVITY URINE AUTO 1.027 (1.002-1.035); SQUAMOUS EPITHELIAL CELL UR AU 12 /HPF (0-6); UROBILINOGEN, URINE AUTO 0.2 mg/dL (0.0-2.0); WBC, URINE AUTO 1 /HPF (0-3)
== END ==
LOC: M LAB REF 18:08
PROVIDERS: ATTEND Physician Assistant Medical
DX: N39.0 Urinary tract infection, site not specified (principal)

== ENCOUNTER → 2022-12-16 | Outpatient (CLI) | payer BC, OTHER | LOC: M WHC 08:06 | PROVIDERS: ATTEND Internal Medicine | DX: Z12.31 Encounter for screening mammogram for malignant neoplasm of breast (principal) ==

== ENCOUNTER → 2023-12-29 | Outpatient (CLI) | payer BC | LOC: M WHC 08:20 | PROVIDERS: ATTEND Internal Medicine | DX: Z12.31 Encounter for screening mammogram for malignant neoplasm of breast (principal) ==